=== PATIENT | female | born 1940 | race Caucasian/White ===

== ENCOUNTER 2020-08-25 14:39 | Inpatient (IN) | payer MEDICARE, BC, OTHER ==
[~2020-08-25] VITALS: Ht 152.4 cm; Wt 47.2 kg
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
--- NOTE | 2020-08-25 14:53 | NUR ---
NIHSS SCORE NOTED @ 11. MD AWARE. SWALLOW EVAL FAIL
--- NOTE | 2020-08-25 14:55 | NUR ---
PT TO CT ON NASIM
[2020-08-25] MEDS ORDERED: LACT-58 PO (14:56)
[2020-08-25] MEDS ORDERED: ZINC220C6 PO (14:56)
[2020-08-25] MEDS ORDERED: DOCU-141 PO (14:56)
[2020-08-25] MEDS ORDERED: IOHEXOL-350 100 ML VIAL IV ONE (14:56)
[2020-08-25] MEDS ORDERED: ACET-868 PO (14:56)
[2020-08-25] MEDS ORDERED: FOLI0.4T6 PO (14:56)
[2020-08-25] MEDS ORDERED: ASCO-352 PO (14:56)
[2020-08-25] MEDS ORDERED: AMLO2.5T4 PO (14:56)
[2020-08-25] MEDS ORDERED: CHOL100062 PO (14:56)
[2020-08-25] MEDS ORDERED: LANS30CA56 PO (14:56)
[2020-08-25] MEDS ORDERED: CLON0.5T4 PO (14:56)
[2020-08-25] MEDS ORDERED: CT SWABBABLE VALVE TRANS SET 1 EA INFUS.SET MC ONE (14:57)
[2020-08-25] MEDS ORDERED: IV NS 0.9% 250 ML IV ONE (14:57)
[2020-08-25 15:04] LABS: BASOPHILS % (AUTO) 0.6 % (0.0-2.0); EOSINOPHILS % (AUTO) 1.2 % (0.0-6.0); HEMATOCRIT 35 % (33-45); HEMOGLOBIN 11.5 g/dL (11.5-14.8); LYMPHOCYTES # (AUTO) 1.1 /CMM (0.8-4.8); LYMPHOCYTES % (AUTO) 19.1 % (20.0-44.0); MEAN CORPUSCULAR HGB CONC 33 g/dl (31.0-36.0); MEAN CORPUSCULAR VOLUME 88 fL (82-100); MONOCYTES # (AUTO) 0.5 /CMM (0.1-1.30); MONOCYTES % (AUTO) 7.6 % (2.0-12.0); NEUTROPHILS # (AUTO) 4.3 /CMM (1.8-8.9); NEUTROPHILS % (AUTO) 71.5 % (43.0-81.0); PLATELET COUNT (AUTO) 117 /CMM (150-450); RED BLOOD CELL COUNT(AUTO) 4.01 MIL/uL (4.0-5.2)
[2020-08-25 15:12] LABS: CALCIUM, SERUM 8.6 mg/dL (8.5-10.1); CARBON DIOXIDE 21 mmol/L (21-32); CHLORIDE 107 mmol/L (98-107); CREATININE 2.5 mg/dL (0.6-1.3); GLUCOSE 188 mg/dL (74-106); POTASSIUM 4.9 mmol/L (3.5-5.1); SODIUM SERUM 138 mmol/L (136-145); UREA NITROGEN, BLOOD 72 mg/dL (7-18)
--- NOTE | 2020-08-25 15:14 | NUR ---
PT BACK FROM RADIOLOGY AND NEUROLOGY ON ROBOT TALKING TO PT.
[2020-08-25 15:38] LABS: CHOLESTEROL 164 mg/dL (<200); HDL CHOLESTEROL 59 mg/dL (40-60); LDL 77 mg/dL (0-99); TRIGLYCERIDES 103 mg/dL (30-150)
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
[2020-08-25] MEDS ORDERED: IV NS 0.9% 1,000 ML IV ONE (16:00)
[2020-08-25] MEDS ORDERED: ASPIRIN 81 MG TAB.CHEW PO ONE (16:00)
--- NOTE | 2020-08-25 16:21 | NUR ---
CALLED DR. BECERRA
[2020-08-25] MEDS ORDERED: ASPIRIN 300 MG/SUPP.RECT RC ONE ×2 (16:30→16:52)
--- NOTE | 2020-08-25 16:47 | NUR ---
CALLED FOR BED.
[2020-08-25] MEDS ORDERED: ACETAMINOPHEN 325 MG TABLET PO PRN (17:00)
[2020-08-25] MEDS ORDERED: clonazePAM 0.5 MG TABLET PO SCH (17:00)
--- NOTE | 2020-08-25 17:03 | NUR ---
LAB CALLED PT COVID RESULT NEGATIVE (-)
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
--- NOTE | 2020-08-25 17:09 | NUR ---
room 112-2
--- NOTE | 2020-08-25 18:03 | NUR ---
REPORT GIVEN TO ARASELI JAY FOR MILADY
--- NOTE | 2020-08-25 18:22 | NUR ---
PT TRANSPORTED TO UNIT ON GURNEY WITH EMT AND RN AT BEDSIDE W/ ACLS PROTOCOL. NAD NOTED DURING TRANSPORT.
[2020-08-25 18:26] VITALS: BP 140/58
--- NOTE | 2020-08-25 18:27 | NUR ---
RECEIVED PATIENT IN BED. NO ACUTE DISTRESS NOTED. PATIENT ALERT & ORIENTED X1-2. PATIENT ON ROOM AIR, SATURATING WELL. PATIENT BED BOUND. PATIENT ON ENGINEERING ANALYST, NSR NOTED. PATIENT RFA #18 AND LAC #20 INTACT, PATENT. PATIENT SAFETY MEASURES MAINTAINED. CALL LIGHT WITHIN REACH. WILL ENDORSE PLAN OF CARE TO ONCOMING SHIFT.
[2020-08-25] MEDS: DOCUSATE SODIUM 100 MG CAPSULE PO SCH (18:37)
[2020-08-25] MEDS ORDERED: DEXTROSE 50%-WATER 50 ML DISP.SYRIN IV PRN (19:00)
[2020-08-25] MEDS ORDERED: ONDANSETRON HCL/PF 4 MG/2 ML VIAL IV PRN (19:30)
[2020-08-25] MEDS ORDERED: ACETAMINOPHEN 650 MG SUPP.RECT RC PRN (19:30)
[2020-08-25 20:00] VITALS: BP 152/68
--- NOTE | 2020-08-25 20:00 | NUR ---
RN NOTES, RECEIVED PATIENT IN BED, PATIENT AWAKE A/O TO SELF ONLY, ON ROOM AIR , BREATHING EVEN AND UNLABORED NO SOB/ACUTE DISTRESS NOTED, NSR WITH BBB IN TELE MONITOR, WITH HR 80S AT THIS TIME, AFEBRILE, O BED REST NOTICED LEFT UPPER AND LOWER EXTREMITY MORE WEAK THAN RIGHT, UNDER MEDICAL CARE OF DR BECERRA WITH ADMITTING DX OF CVA, RFA #18 AND LAC #20 INTACT, PATENT AND IVF INFUSING ORDERED, NPO AT THIS TIME, WILL HAVE SPEECH AND SWALLOW EVAL IN AM, WILL BE WILL ON FREQUENT NEURO CHECKS, ALL SAFETY MEASURES MAINTAINED, CALL LIGHT WITHIN REACH, S/R OF BED UP X2, WILL CONTINUE TO MONITOR CLOSELY.
[2020-08-25] MEDS: IV NS 0.9% 1,000 ML IV PRN (20:47)
[2020-08-25] MEDS ORDERED: ENOXAPARIN SODIUM 30 MG/0.3 ML DISP.SYRIN SQ SCH (21:00)
[2020-08-25] MEDS ORDERED: HEPARIN SODIUM, PORCINE 5000 UNITS/1 ML VIAL SQ ONE (21:00)
[2020-08-25] MEDS: HEPARIN SODIUM, PORCINE 5000 UNITS/1 ML VIAL SQ SCH (21:01)
[2020-08-26] VITALS: BP 134/51
[2020-08-26] MEDS: BLOOD SUGAR DIAGNOSTIC 1 EACH STRIP IN SCH ×5 (00:10→21:56)
[2020-08-26] MEDS: INSULIN REGULAR, HUMAN 100 UNIT/ML 3 ML VIAL SQ PRN ×3 (00:12→17:19)
[2020-08-26 04:00] VITALS: BP 146/67
[2020-08-26 05:57] LABS: BASOPHILS % (AUTO) 0.5 % (0.0-2.0); EOSINOPHILS % (AUTO) 3.2 % (0.0-6.0); HEMATOCRIT 32 % (33-45); HEMOGLOBIN 10.6 g/dL (11.5-14.8); LYMPHOCYTES % (AUTO) 30.5 % (20.0-44.0); MEAN CORPUSCULAR HGB CONC 33 g/dl (31.0-36.0); MEAN CORPUSCULAR VOLUME 89 fL (82-100); MONOCYTES # (AUTO) 0.3 /CMM (0.1-1.30); MONOCYTES % (AUTO) 7.4 % (2.0-12.0); NEUTROPHILS % (AUTO) 58.4 % (43.0-81.0); PLATELET COUNT (AUTO) 90 /CMM (150-450); RED BLOOD CELL COUNT(AUTO) 3.64 MIL/uL (4.0-5.2); WHITE BLOOD COUNT (AUTO) 3.4 K/uL (4.3-11.0)
--- NOTE | 2020-08-26 06:32 | NUR ---
RN NOTES, PATIENT ASLEEP AT THIS TIME, BUT AROUSES TO VERBAL STIMULI, A/O X1 TO SELF, ASKED PATIENT HOW SHE IS FEELING TODAY AND SHE STATED SHE IS FEELING OK, NOTED SPEECH MORE CLEAR THAN LAST NIGHT, NO DISTRESS NOTED, WILL ENDORSE CONTINUITY OF CARE TO ONCOMING NURSE.
[2020-08-26 07:05] LABS: CALCIUM, SERUM 8.3 mg/dL (8.5-10.1); CARBON DIOXIDE 19 mmol/L (21-32); CHLORIDE 113 mmol/L (98-107); CREATININE 2.1 mg/dL (0.6-1.3); GLUCOSE 118 mg/dL (74-106); POTASSIUM 4.2 mmol/L (3.5-5.1); SODIUM SERUM 143 mmol/L (136-145); UREA NITROGEN, BLOOD 55 mg/dL (7-18)
[2020-08-26 07:11] LABS: CHOLESTEROL 144 mg/dL (<200); HDL CHOLESTEROL 49 mg/dL (40-60); LDL 72 mg/dL (0-99); TRIGLYCERIDES 113 mg/dL (30-150)
--- NOTE | 2020-08-26 07:55 | NUR ---
RN OPENING NOTE PATIENT IS CURRENTLY IN BED WITH HOB AT SEMI FOWLERS POSITION. PATIENT IS AOX1. ON ROOM AIR WITH NO SIGNS OF LABORED BREATHIN. PERINEAL AND BILATERAL HEEL REDNESS ARE NOTED. RFA #18 AND LAC 20G ARE PATENT, INTACT, AND HAVE NO SIGNS OF INFILTRATION. BED IS LOCKED IN THE LOWEST POSITION, 3 GUARD RAILS RAISED, CALL MICHELLE WITHIN REACH, AND ALL HOSPITAL SAFETY PRECAUTIONS ARE BEING FOLLOWED. WILL CONTINUE TO MONITOR THROUGHOUT SHIFT.
[2020-08-26 08:00] VITALS: BP 106/55
--- NOTE | 2020-08-26 08:45 | NUR ---
RN NOTE SPOKE WITH SPEECH THERAPIST CRYS. ADVISED ME THAT SHE WILL SWITCH DIET TO CARDIAC/PUREED AND PATIENT IS OKAY TO TOLERATE PO MEDS. WILL CONTINUE TO ADMINISTER SCHEDULED AND MONITOR PATIENT'S TOLERANCE.
[2020-08-26] MEDS: AMLODIPINE BESYLATE 2.5 MG TABLET PO SCH ×2 (09:00→16:43)
[2020-08-26] MEDS ORDERED: ASPIRIN 300 MG/SUPP.RECT RC SCH (09:00)
[2020-08-26] MEDS: FAMOTIDINE/PF INJ 20 MG/2 ML VIAL IV SCH (09:19)
[2020-08-26] MEDS: HEPARIN SODIUM, PORCINE 5000 UNITS/1 ML VIAL SQ SCH ×2 (09:23→20:10)
[2020-08-26] MEDS: DOCUSATE SODIUM 100 MG CAPSULE PO SCH ×2 (09:33→16:44)
[2020-08-26 10:19] LABS: EOSINOPHILS % (MANUAL) 1 % (0-4); LYMPHOCYTES % (MANUAL) 32 % (16-48); MONOCYTES % (MANUAL) 7 % (0-11.0); NEUTROPHILS % (MANUAL) 60 (42-76)
[2020-08-26 12:00] VITALS: BP 156/59
[2020-08-26] MEDS: ASPIRIN 81 MG TAB.CHEW PO SCH (12:05)
--- NOTE | 2020-08-26 12:39 | NUR ---
MRI RESULT RELAYED TO DR. BECERRA NO NEW ORDERS.
--- NOTE | 2020-08-26 13:30 | NUR ---
RN NOTE COFFEY CATHETER INSERTED PER DR. BECERRA'S ORDER.
--- NOTE | 2020-08-26 14:35 | NUR ---
Steel Division Supervisor: government services professional consult requested for stroke. Patient is a 80-year-old, white female. SW met with the patient in her hospital room on the med surg unit. Patient is confused and unable to discuss plan of care. SW will follow up with the patient at a later time.
[2020-08-26] MEDS: IV NS 0.9% 1,000 ML IV PRN (15:55)
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
--- NOTE | 2020-08-26 16:09 | NUR ---
RN NOTE PATIENT IS UNABLE TO HOLD LEFT ARM UP AGAINST GRAVITY FOR 10 CONSECUTIVE SECONDS. PATIENT SUCCESSFULLY COMPLETED ATTEMPT IN AM. WILL COMPLETE FULL STROKE SCALE ASSESSMENT.
--- NOTE | 2020-08-26 16:21 | NUR ---
RN NOTE PATIENT'S STROKE SCALE SCORE HAS RISEN FROM A [address] BECERRA NOTIFIED. WILL CONTINUE TO MONITOR.
--- NOTE | 2020-08-26 17:00 | NUR ---
RN NOTE LAC IV ACCESS IS LEAKING. SITE REMOVED AND BANDAGED. SITE DISCONTINUED ON EMAR.
--- NOTE | 2020-08-26 18:00 | NUR ---
dr. valdez notified regarding repeat ct head results nonew orders.will continue to monitor.
--- NOTE | 2020-08-26 18:23 | NUR ---
RN NOTE PATIENT WAS ABLE TO HOLD AFFECTED LEFT ARM UP AGAINST GRAVITY FOR 10 SECONDS.
--- NOTE | 2020-08-26 18:46 | NUR ---
RN CLOSING NOTE PATIENT IS CURRENTLY IN BED WITH HOB AT SEMI FOWLERS POSITION. PATIENT IS AOX1. ON ROOM AIR WITH NO SIGNS OF LABORED BREATHING. PERINEAL AND BILATERAL HEEL REDNESS ARE NOTED. RFA #18 IS PATENT, INTACT, AND HAS NO SIGNS OF INFILTRATION. BED IS LOCKED IN THE LOWEST POSITION, 3 GUARD RAILS RAISED, CALL MICHELLE WITHIN REACH, AND ALL HOSPITAL SAFETY PRECAUTIONS ARE BEING FOLLOWED. PATIENT HAD A RISE IN STROKE SCALE FROM 10 TO [address] BECERRA AND STAT HEAD CT WAS PERFORMED. PATIENT IS STABLE AT TIME OF HANDOFF. ALL DUE MEDS WERE GIVEN. WILL ENDORSE TO NECKTIES PAINTER RN.
--- NOTE | 2020-08-26 19:26 | NUR ---
RN NOTE RECEIVED PT AWAKE AND ALERT/ORIENTED X 1. HEAD OF BED ELEVATED. PT IS ON ROOM AIR. RESPIRATIONS UNLABORED. NO SIGNS OF PAIN OR DISCOMFORT. NSR ON THE ELECTRONICS DEPARTMENT MANAGER. COFFEY CATHETER PATENT AND IN PLACE DRAINING URINE VIA GRAVITY, WITH RIGHT FOREARM 18G IV PATENT WITH NS @ 75ML/HOUR, SAFETY MEASURES IN PLACE PER PROTOCOL, BED ALARM ON, BED LOCKED AND IN LOW POSITION, SIDE RAILS UP X 2, WILL MONITOR.
[2020-08-26 20:00] VITALS: BP 148/58
[2020-08-27] VITALS: BP 152/52
[2020-08-27 01:09] LABS: BILIRUBIN,URINE NEGATIVE (NEGATIVE); COLOR,URINE YELLOW (YELLOW); LEUKOCYTE ESTERASE ,URINE LARGE (NEGATIVE); NITRITE, URINE NEGATIVE (NEGATIVE); PROTEIN,URINE 100 mg/dl (NEGATIVE); UGLUCOSE 100 MG/DL mg/dL (NEGATIVE); UROBILINOGEN,URINE 0.2 EU/dL (0.2)
[2020-08-27 01:27] LABS: CREATININE, URINE 37.8 MG/DL (30.0-125.0); URINE TOTAL PROTEIN 241.4 mg/dL (0-11.9)
[2020-08-27 01:42] LABS: BACTERIA,URINE Many /HPF (None Seen); RBC,URINE 51-80 /HPF (0-2); WBC,URINE TOO NUMEROUS TO COUN /HPF (0-3)
[2020-08-27 01:43] LABS: SQUAMOUS EPITHELIAL CELL,UR Few /HPF (None Seen)
--- NOTE | 2020-08-27 02:00 | NUR ---
RN NOTE PT SLEEPING IN BED. RESPIRATIONS UNLABORED, NO SIGNS OF PAIN OR DISCOMFORT, NO FURTHER NEEDS AT THIS TIME.
[2020-08-27] MEDS: IV NS 0.9% 1,000 ML IV PRN ×2 (03:14→16:39)
[2020-08-27 04:00] VITALS: BP 134/52
[2020-08-27 05:23] LABS: EOSINOPHIL,URINE Moderate
[2020-08-27 05:57] LABS: BASOPHILS % (AUTO) 0.5 % (0.0-2.0); EOSINOPHILS % (AUTO) 2.6 % (0.0-6.0); HEMATOCRIT 31 % (33-45); HEMOGLOBIN 10.1 g/dL (11.5-14.8); LYMPHOCYTES # (AUTO) 0.9 /CMM (0.8-4.8); LYMPHOCYTES % (AUTO) 26.7 % (20.0-44.0); MEAN CORPUSCULAR HGB CONC 33 g/dl (31.0-36.0); MEAN CORPUSCULAR VOLUME 88 fL (82-100); MONOCYTES # (AUTO) 0.2 /CMM (0.1-1.30); MONOCYTES % (AUTO) 6.5 % (2.0-12.0); NEUTROPHILS # (AUTO) 2.2 /CMM (1.8-8.9); NEUTROPHILS % (AUTO) 63.7 % (43.0-81.0); PLATELET COUNT (AUTO) 85 /CMM (150-450); RED BLOOD CELL COUNT(AUTO) 3.45 MIL/uL (4.0-5.2); WHITE BLOOD COUNT (AUTO) 3.5 K/uL (4.3-11.0)
--- NOTE | 2020-08-27 06:21 | NUR ---
RN NOTE SEEN AND EXAMINED BY DR. BECERRA AT BEDSIDE.
[2020-08-27 06:47] LABS: ALANINE AMINOTRANSFERASE 58 U/L (12-78); ALBUMIN 2.7 g/dL (3.4-5.0); ALKALINE PHOSPHATASE 139 U/L (46-116); ASPARTATE AMINOTRANSFERASE 25 U/L (15-37); BILIRUBIN,TOTAL 0.2 mg/dL (0.2-1.0); CALCIUM, SERUM 8.4 mg/dL (8.5-10.1); CARBON DIOXIDE 17 mmol/L (21-32); CHLORIDE 115 mmol/L (98-107); CREATININE 2.1 mg/dL (0.6-1.3); GLUCOSE 102 mg/dL (74-106); MAGNESIUM 2.3 mg/dL (1.8-2.4); PHOSPHORUS 3.6 mg/dL (2.5-4.9); POTASSIUM 4.3 mmol/L (3.5-5.1); SODIUM SERUM 145 mmol/L (136-145); TOTAL PROTEIN, SERUM 6.5 g/dL (6.4-8.2); UREA NITROGEN, BLOOD 43 mg/dL (7-18)
[2020-08-27 06:49] LABS: IRON, SERUM 97 ug/dl (50-175); TOTAL IRON BINDING CAPACITY 236 ug/dl (250-450)
[2020-08-27 07:34] LABS: CREATINE KINASE, TOTAL 26 U/L (26-192); FERRITIN 96 ng/mL (8-388)
[2020-08-27] MEDS: BLOOD SUGAR DIAGNOSTIC 1 EACH STRIP IN SCH ×4 (07:47→23:18)
--- NOTE | 2020-08-27 07:51 | NUR ---
RN OPENING NOTE PT RESTING IN BED ASLEEP, AROUSES TO TOUCH. A/O X1 WITH NO SIGNS OF PAIN OR NAUSEA PRESENT. CURRENTLY ON RA WITH NO SOB OR RESPIRATORY DISTRESS PRESENT. SINUS RHYTHM WITH BBB RECORDED VIA EXTERNAL MONITOR. ON BEDREST WITH DIAPER. F/C PRESENT AND DRAINS WITH CLEAR YELLOW FLUID. REDNESS PRESENT ON PERINEUM AND B HEELS. NO EDEMA PRESENT. HL PRESENT ON R FA 18G AND L FA 20G. SAFETY MEASURES IN PLACE. SIDE RAILS RAISED. BED LOWERED. CALL LIGHT WITHIN REACH. WILL CONTINUE TO MONITOR.
[2020-08-27 08:00] VITALS: BP 134/52
--- NOTE | 2020-08-27 08:31 | NUR ---
RN MEDICINE NOTE PATIENT HEPARIN HELD DUE TO PLATELET OF 85. NO SIGNS OF BLEEDING OR VTE PRESENT. WILL CONTINUE TO MONITOR.
[2020-08-27] MEDS: ASPIRIN 81 MG TAB.CHEW PO SCH (08:32)
[2020-08-27] MEDS: DOCUSATE SODIUM 100 MG CAPSULE PO SCH ×2 (08:32→16:59)
[2020-08-27] MEDS: FAMOTIDINE/PF INJ 20 MG/2 ML VIAL IV SCH (08:33)
[2020-08-27] MEDS: HEPARIN SODIUM, PORCINE 5000 UNITS/1 ML VIAL SQ SCH ×2 (09:00→21:11)
[2020-08-27 09:22] LABS: EOSINOPHILS % (MANUAL) 1 % (0-4); LYMPHOCYTES % (MANUAL) 28 % (16-48); MONOCYTES % (MANUAL) 7 % (0-11.0); NEUTROPHILS % (MANUAL) 64 (42-76)
[2020-08-27] MEDS: AMLODIPINE BESYLATE 2.5 MG TABLET PO SCH ×2 (11:00→16:58)
[2020-08-27 12:00] VITALS: BP 145/54
--- NOTE | 2020-08-27 12:03 | NUR ---
RN MEDICINE NOTE PT AMLODIPINE HELD. BP OF 145/54. HR 88. PT AWAKE IN BED RESTING. NO DISTRESS PRESENT. WILL CONTINUE TO MONITOR.
[2020-08-27 16:00] VITALS: BP 168/71
--- NOTE | 2020-08-27 17:22 | NUR ---
RN IV NOTE PATIENT PULLED OUT IV ON L FOREARM. NO SIGNS OF EXTENDED BLEEDING. GAUZE APPLIED. IV ON R FOREARM FLUSHES WELL. WILL CONTINUE TO MONITOR.
--- NOTE | 2020-08-27 17:23 | NUR ---
RN CLOSING NOTE PT RESTING IN BED ASLEEP, AROUSES TO TOUCH. A/O X1-2 WITH NO SIGNS OF PAIN OR NAUSEA. PERIODS OF CONFUSION PRESENT. CURRENTLY ON RA WITH NO SOB OR RESPIRATORY DISTRESS PRESENT. SINUS RHYTHM WITH BBB RECORDED VIA EXTERNAL MONITOR. ON BEDREST WITH DIAPER. F/C PRESENT AND DRAINS WITH CLEAR YELLOW FLUID. REDNESS PRESENT ON PERINEUM AND B HEELS. NO EDEMA PRESENT. HL PRESENT ON R FA 18G. ROUTINE MEDS GIVEN SAFETY MEASURES IN PLACE. SIDE RAILS RAISED. BED LOWERED. CALL LIGHT WITHIN REACH. REPORT TO BE GIVEN TO NIGHT NURSE FOR MILADY.
[2020-08-27 20:00] VITALS: BP 163/70
--- NOTE | 2020-08-27 20:00 | NUR ---
MS RN NOTE PT IN BED AWAKE. A/O X 2, NO SOB NO DISTRESS OR DISCOMFORT NOTED. DENIES PAIN. IVF NS @ 75 ML/HR INFUSING WELL, NO S/S OF INFILTRATION NOTED. KEPT HER DRY AND CLEAN. SIDE RAILS UP X 2 AND CALL LIGHT WITHIN REACH. VSS. CONTINUE TO MONITOR HER.
[2020-08-27] MEDS: INSULIN REGULAR, HUMAN 100 UNIT/ML 3 ML VIAL SQ PRN (23:20)
[2020-08-28 04:00] VITALS: BP 137/70
[2020-08-28 05:07] LABS: PTH, INTACT 107 pg/mL (15-65)
--- NOTE | 2020-08-28 06:30 | NUR ---
MS RN NOTE PT IN BED ASLEEP, NO DISTRESS OR DISCOMFORT NOTED. DENIES PAIN. SIDE RAILS UP X 2 AND CALL LIGHT WITHIN REACH. VSS. WILL ENDORSE TO DAY SHIFT NURSE.
[2020-08-28] MEDS: IV NS 0.9% 1,000 ML IV PRN (06:34)
[2020-08-28] MEDS: BLOOD SUGAR DIAGNOSTIC 1 EACH STRIP IN SCH ×2 (07:34→12:54)
[2020-08-28 08:00] VITALS: BP 147/64
[2020-08-28] MEDS: ASPIRIN 81 MG TAB.CHEW PO SCH (08:00)
[2020-08-28] MEDS: FAMOTIDINE/PF INJ 20 MG/2 ML VIAL IV SCH (08:00)
[2020-08-28] MEDS: DOCUSATE SODIUM 100 MG CAPSULE PO SCH (08:00)
[2020-08-28 08:01] VITALS: BP 147/64
[2020-08-28] MEDS: AMLODIPINE BESYLATE 2.5 MG TABLET PO SCH (08:01)
[2020-08-28 08:06] LABS: *SPE A/G RATIO 0.9 (0.7-1.7); *SPE ALBUMIN 2.8 g/dL (2.9-4.4); *SPE ALPHA-1-GLOBULIN 0.2 g/dL (0.0-0.4); *SPE ALPHA-2-GLOBULIN 0.6 g/dL (0.4-1.0); *SPE BETA GLOBULIN 0.8 g/dL (0.7-1.3); *SPE M-SPIKE Not Observed g/dL (Not Observed); *SPEGAMMA GLOBULIN 1.3 g/dL (0.4-1.8)
[2020-08-28] MEDS: HEPARIN SODIUM, PORCINE 5000 UNITS/1 ML VIAL SQ SCH (09:00)
--- NOTE | 2020-08-28 10:00 | NUR ---
0900 HEPARIN NON-ADMIN, TO BE HELD PER MD BECERRA. PATIENT PREVIOUS PLT FROM 08/27 IS 85, TRENDING DOWN. ORDERS CBC FOR 08/28
--- NOTE | 2020-08-28 10:53 | NUR ---
WOUND CARE CONSULT: PT PRESENTS WITH PERIANAL AND PERINEAL REDNESS, LOWER LEG DISCOLORATION, PRESENT ON ADMISSION. RECOMMENDATIONS MADE FOR SKIN PROTECTION. DISCUSSED WITH NURSING STAFF. PT IS INCONTINENT OF STOOL. ALEXX WILDER NOTED. MD Mckenna AGREEMENT WITH PLAN OF CARE. Addendum: 08/28/20 at 1054 by KYLAH AGUAYO WNDNU Amended: Links added.
[2020-08-28] MEDS ORDERED: ASPI-1420 PO (10:56)
[2020-08-28] MEDS ORDERED: CLOP75TA15 PO (10:56)
[2020-08-28] MEDS ORDERED: AMLO5TAB4 PO (10:56)
[2020-08-28] MEDS ORDERED: ATOR40TA PO (10:56)
[2020-08-28] MEDS ORDERED: Z GUARD REMEDY 2 OZ OINT TP PRN (11:00)
[2020-08-28] MEDS ORDERED: Z GUARD REMEDY 2 OZ OINT TP SCH (11:00)
[2020-08-28 11:01] LABS: BASOPHILS % (AUTO) 0.3 % (0.0-2.0); EOSINOPHILS % (AUTO) 1.6 % (0.0-6.0); HEMATOCRIT 32 % (33-45); HEMOGLOBIN 10.4 g/dL (11.5-14.8); LYMPHOCYTES # (AUTO) 0.8 /CMM (0.8-4.8); LYMPHOCYTES % (AUTO) 18.7 % (20.0-44.0); MEAN CORPUSCULAR HGB CONC 33 g/dl (31.0-36.0); MEAN CORPUSCULAR VOLUME 88 fL (82-100); MONOCYTES # (AUTO) 0.3 /CMM (0.1-1.30); MONOCYTES % (AUTO) 7.7 % (2.0-12.0); NEUTROPHILS # (AUTO) 3.2 /CMM (1.8-8.9); NEUTROPHILS % (AUTO) 71.7 % (43.0-81.0); PLATELET COUNT (AUTO) 92 /CMM (150-450); RED BLOOD CELL COUNT(AUTO) 3.58 MIL/uL (4.0-5.2); WHITE BLOOD COUNT (AUTO) 4.5 K/uL (4.3-11.0)
[2020-08-28] MEDS: INSULIN REGULAR, HUMAN 100 UNIT/ML 3 ML VIAL SQ PRN (13:01)
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
--- NOTE | 2020-09-02 15:44 | NUR ---
Assistant Professor Of Mathematics Note: ROSY faxed SOC 341 to Olga [phone]. ROSY called [facility] [phone] and spoke to Helen to file a verbal report however, the call had dropped. ROSY called back [facility] to continue filing verbal report, but the line was busy. catering convention services manager will continue to contact [facility].
== END 2020-08-28 14:30 | DRG 64 ==
LOC: ER 14:39 → MEDSG1 17:23 → TELE1 19:21 → MEDSG1 08-27 08:07
PROVIDERS: ADMIT Legal Medicine; ATTEND Legal Medicine
DX: I63.9 Cerebral infarction, unspecified (principal); N17.0 Acute kidney failure with tubular necrosis; S02.109A Fracture of base of skull, unspecified side, initial encounter for closed fracture; N18.4 Chronic kidney disease, stage 4 (severe); G93.40 Encephalopathy, unspecified; F03.90 Unspecified dementia, unspecified severity, without behavioral disturbance, psychotic disturbance, mood disturbance, and anxiety; R29.706 NIHSS score 6; R40.2362 Coma scale, best motor response, obeys commands, at arrival to emergency department; R40.2142 Coma scale, eyes open, spontaneous, at arrival to emergency department; R40.2242 Coma scale, best verbal response, confused conversation, at arrival to emergency department; I13.10 Hypertensive heart and chronic kidney disease without heart failure, with stage 1 through stage 4 chronic kidney disease, or unspecified chronic kidney disease; K21.9 Gastro-esophageal reflux disease without esophagitis; Z79.899 Other long term (current) drug therapy; D64.9 Anemia, unspecified; D69.6 Thrombocytopenia, unspecified
CPT/HCPCS: 36415; 70450-TC; 70496-TC; 70498-TC; 70551-TC; 71045-TC; 76770-TC; 80048-TC; 80053-TC; 80061-TC; 81001; 82550-TC; 82570-TC; 82728-TC; 82962-TC; 83540-TC; 83735-TC; 83970; 84100-TC; 84155; 84155-TC; 84165; 84300-TC; 84484-TC; 85025-TC; 85730-TC; 87081-TC; 87086-TC; 87186-TC; 92507-TC; 92521; 92526; 92611-TC; 97110-TC; 97112-TC; 97530-TC; C9803; G0378; J1644; J1815; J3490; J7030; J7050; Q9967; U0003